=== PATIENT | female | born 1960 | race Caucasian/White ===

== ENCOUNTER 2020-09-13 07:16 | Emergency (ER) | payer BC ==
--- OUTSIDE RECORDS SUMMARY | 2020-09-13 07:19 | XMS REPORT | Continuity of Care Document ---
:1960 Author Organization [facility] t Address [address] [place] [address] Care Team Providers Name Role Phone Asked, No Pcp Primary Care Physician Unavailable Payers Payer Name Policy Type Policy Number Effective Date Expiration Date S ource Problems Condition Condition Condition Status Onset Resolution Last Treating Co mments Source Name Details Category Date Date Treatment Clinician Date History of History of Disease Active 2016-08 [facility] [place] colon colon 08-31 [facility] cancer cancer 00:00: st 00 Internal Internal Disease Active 2015-08 [place] on hemorrhoid hemorrhoid 09-26 [facility] s without s without 00:00: st complicati complicati 00 on on Constipati Constipati Disease Active 2015-08 [place] on on 09-26 [facility] 00:00: st 00 Allergies, Adverse Reactions, Alerts Allergy Allergy Status Severity Reaction(s) Onset Inactive Treating Comm ents Source Name Type Date Date Clinician No Known DA Active U 2019-08 [facility] Allergie 09-01 [place] [facility] 00:[facility]: [facility] No Known DA Active U [facility] Allergie 05-17 [facility] 00:00: [place] [id number] [facility] Family History Family Member Diagnosis Comments Start Date Stop Date Source Natural father Hypertension [place] [facility] Natural mother Arthritis [facility] Natural mother Stroke [facility] Other Cancer [place] [facility] Social History Social Habit Start Date Stop Date Quantity Comments Source Sex Assigned At [place] [facility] Alcohol intake 2018-07-06 2018-07-06 Current drinker [place] [facility] 00:00:00 00:00:00 of alcohol (finding) Smoking Status Start Date Stop Date Source Never smoker [place] [facility] Medications Ordered Filled Start Stop Current Ordering Indication Dosage Frequency Signature Comments Components Source Medication Medication Date Date Medication? Clinician (SIG) Name Name sodium,pota 2019-0 Yes Please [place] ssium,mag -02 take as [facility] sulfates 00:00: directed st (SUPREP 00 by BOWEL PREP physician. KIT) 17.5-3.13-1 .6 gram recon soln Procedures This patient has no known procedures. Plan of Care Planned Activity Planned Date Details Comments Source Future Scheduled 2021-09-05 COLONOSCOPY SCREENING [facility] Test 00:00:00 [code = COLONOSCOPY SCREENING] Future Scheduled 2020-03-30 INFLUENZA VACCINE [place] [facility] 00:00:00 [code = INFLUENZA VACCINE] Future Scheduled 2009 BREAST CANCER [facility] thodist Test 00:00:00 SCREENING [code = BREAST CANCER SCREENING] Future Scheduled 2009 SHINGLES VACCINES [place] [facility] Test 00:00:00 (#1) [code = SHINGLES VACCINES (#1)] Future Scheduled 1980 Screening for [facility] Test 00:00:00 malignant neoplasm of cervix (procedure) [code = [id number]] Future Scheduled 1975 COVID-19 VACCINE (1 [place] [facility] Test 00:00:00 of 2) [code = COVID-19 VACCINE (1 of 2)] Results Test Description Test Time Test Comments Results Result Comments Source Novel Coronavirus 2018 Inhouse 2020-06-28 18:08:00 Test Item Value Reference Range Interpretation Comme nts Novel Coronavirus 2018 Not Detected Not Detected Testi ng was performed using the Inhouse (test code = Aptima SARS-CoV-2 assay.This COVNONPUI) nucleic acid am plification test was developed a nd itsperformance characteristics determined by [facility]. Nucleic acid amplification t ests include PCRand TMA. Thi s test has not been FDA cleare d or approved.This test has been a uthorized by FDA under an Emerge ncy UseAuthorizatio n (EUA). This test is only authori zed forthe duration of shekhar e the declaration that circumstan cesexist justifying the authorization of the emergency u se ofin vitro diagnostic test s for detection of SARS-CoV-2 viru sand/or diagnosis of COVID-19 inf ection under zvmvdyr108(b)(1 ) of the Act, 21 U.S.C. 360bbb-3 (b) (1), unless theauthorizatio n is terminated or revoked sooner. When diagnostic testing is nega tive, the possibility of afalse negative result should b e considered in the contextof a patient's recent exposures and t he presence ofclinical sign s and symptoms consistent with COVID-19. Anindividual wi thout symptoms of COVID-19 and wh o is notshedding SARS-CoV-2 viru s would expect to have a negative (not detected) result in this assay.Performed At: [facility] [address] [id number] Bruno Alonso MD Ph:[phone] Novel Coronavirus 2018 [id number] 10:11:00 Test Item Value Reference Range Interpretation Comments Novel Coronavirus Not Detected Not Detected Testing wa s performed 2019 Inhouse (test using the Aptima code = COVNONPUI) SARS-CoV-2 assay.This nucleic acid amplification t est was developed and itsperformance characteristics determined by [facility]. Nucleic acid amplification t ests include PCRand TMA. This test has not be en FDA cleared or appr parrish.This test has been a uthorized by FDA under an Emergency UseAuthorizatio n (EUA). This test is on ly authorized fort he duration of shekhar e the declaration paz t circumstancesex ist justifying the authorization o f the emergency use o fin vitro diagnostic test s for detection of SA RS-CoV-2 virusand/or ashlyn gnosis of COVID-19 infect ion under (b)(1 ) of the Act, 21 U.S.C. 360bbb-3(b) (1) , unless theauthorizatio n is terminated or r evoked sooner.When ashlyn gnostic testing is nega tive, the possibility of afalse negative result should be considered i n the contextof a pat ient's recent exposure s and the presence ofclin ical signs and sympt oms consistent with COVID-19. Anind ividual without symptom s of COVID-19 and wh o is notshedding REMY S-CoV-2 virus would exp ect to have a negative (not detected) resul t in this assay.Performed At: [facility] [address] [id number] che Alonso MD Ph:[phone]
--- OUTSIDE RECORDS SUMMARY | 2020-09-13 07:19 | XMS REPORT | Clinical Summary ---
:1960 Author Organization [facility] Address [address] [place] [id number] Care Team Providers Name Role Phone Asked, Pcp Primary Care Provider Unavailable Allergies No Known Active Allergies Medications Medication Sig Dispensed Refills Start Date End Date Status sodium,potassium,mag Please take as 354 mL 0 08/31/2018 Active sulfates (SUPREP directed by BOWEL PREP KIT) physician. 17.5-3.13-1.6 gram recon soln Active Problems Problem Noted Date History of colon cancer 07/01/2017 Internal hemorrhoids without complication 07/27/2016 Constipation 07/27/2016 Surgical History Surgery Date Site/Laterality Comments COLONOSCOPY Family History Medical History Relation Name Comments Hypertension Father Arthritis Mother Stroke Mother Cancer Other grandmother Relation Name Status Comments Father Mother Other Social History Tobacco Use Types Packs/Day Years Used Date Never Smoker Alcohol Use Drinks/Week oz/Week Comments Yes 2 Standard drinks or equivalent 2.0 Sex Assigned at Date Recorded Not on file Last Filed Vital Signs Not on file Plan of Treatment Health Maintenance Due Date Last Done Comments COVID-19 VACCINE (1 of 2) 1975 CERVICAL CANCER SCREENING 1980 BREAST CANCER SCREENING 2009 SHINGLES VACCINES (#1) 2009 INFLUENZA VACCINE 03/30/2020 COLONOSCOPY SCREENING 09/05/2021 09/05/2018, 04/20/2016 Results Not on fileafter 09/13/2019 Advance Directives For more information, please contact: [phone] Type Date Recorded Patient Print Production Coordinator Explanati on Advance Directives, Living Will and Medical Power of Intelligence Agent
--- NOTE | 2020-09-13 07:53 | ER ---
Nurse's Notes [facility] Name: Ewa Richardson Age: 60 yrs Sex: Female : 1960 Arrival Date: 09/13/2020 Time: 07:17 Bed 8 Private MD: Diagnosis: COVID Exposure Presentation: 09/13 07:28 Chief complaint: Sinus congestion x 2 days. Exposed to COVID + pt last weekend. hb Coronavirus screen: Client presents with at least one sign or symptom that may indicate coronavirus-19. Standard/surgical mask placed on the client. Provider contacted for isolation considerations. Ebola Screen: No symptoms or risks identified at this time. Initial Sepsis Screen: Does the patient meet any 2 criteria? No. Patient's initial sepsis screen is negative. Does the patient have a suspected source of infection? No. Patient's initial sepsis screen is negative. Risk Assessment: Do you want to hurt yourself or someone else? Patient reports no desire to harm self or others. Onset of symptoms was September 11, 2020. 07:28 Method Of Arrival: Ambulatory 07:28 Acuity: MARZENA 4 hb Historical: - Allergies: 07:30 No Known Allergies; hb - Immunization history:: Adult Immunizations up to date. - Social history:: Smoking status: Patient denies any tobacco usage or history of. Screenin:40 Abuse screen: Denies threats or abuse. Nutritional screening: No deficits noted. aa5 Tuberculosis screening: No symptoms or risk factors identified. Fall Risk None identified. Assessment: 07:40 General: Appears comfortable, Behavior is calm, cooperative. Pain: Denies pain. Neuro: aa5 Level of Consciousness is awake, alert, obeys commands, Oriented to person, place, time, situation. Cardiovascular: Patient's skin is warm and dry. Respiratory: Airway is patent Respiratory effort is even, unlabored, Respiratory pattern is regular, symmetrical. GI: No signs and/or symptoms were reported involving the gastrointestinal system. : No signs and/or symptoms were reported regarding the genitourinary system. EENT: Reports nasal congestion. Derm: Skin is pink, warm \T\ dry. Musculoskeletal: Range of motion: intact in all extremities. Vital Signs: 07:28 BP 134 / 93; Pulse 84; Resp 16; Temp 98.2; Pulse Ox 100% on R/A; Pain 0/10; hb ED Course: 07:17 Patient arrived in ED. ag3 07:29 Triage completed. hb 07:30 Arm band placed on. hb 07:34 Finn Gross MD is Attending Physician. kdr 07:35 Julia Oh, RN is Primary Nurse. aa5 07:40 Patient has correct armband on for positive identification. Bed in low position. aa5 07:42 COVID swab sent to lab. Flu and/or RSV swab sent to lab. aa5 07:52 No provider procedures requiring assistance completed. Patient did not have IV access aa5 during this emergency room visit. Administered Medications: No medications were administered Outcome: 07:52 Discharge ordered by . kdr 07:52 Discharged to home ambulatory. aa5 07:52 Condition: stable 07:52 Discharge instructions given to patient, Instructed on discharge instructions, follow up and referral plans. Demonstrated understanding of instructions, follow-up care. 07:53 Patient left the ED. aa5 Signatures: Finn Gross MD MD [facility] Julia Oh, RN RN [facility] Carmelina Albright, KARL RN Erin Forrester 3
--- NOTE | 2020-09-13 07:53 | EDPHYS ---
Physician Documentation [facility] Name: Ewa Richardson Age: 60 yrs Sex: Female : 1960 Arrival Date: 09/13/2020 Time: 07:17 Bed 8 Private MD: ED Physician Finn Gross HPI: 09/13 07:45 This 60 yrs old Female presents to ER via Ambulatory with complaints of kdr Cough, Congestion. 07:45 The patinet was here for COVID swab after exposure earlier last week. She has minimal kdr symptoms . Historical: - Allergies: 07:30 No Known Allergies; hb - Immunization history:: Adult Immunizations up to date. - Social history:: Smoking status: Patient denies any tobacco usage or history of. ROS: 07:45 Constitutional: Negative for fever, chills, and weight loss. kdr Exam: 07:45 Constitutional: No exam performed this will be a non-bill for [facility] kdr Vital Signs: 07:28 BP 134 / 93; Pulse 84; Resp 16; Temp 98.2; Pulse Ox 100% on R/A; Pain 0/10; hb MDM: 07:52 Patient medically screened. kdr 07:53 Data reviewed: vital signs, nurses notes, lab test result(s). Counseling: I had a kdr detailed discussion with the patient and/or guardian regarding: the historical points, exam findings, and any diagnostic results supporting the discharge/admit diagnosis, lab results, the need for outpatient follow up. Administered Medications: No medications were administered Disposition: 09/13/20 07:52 Discharged to Home. Impression: COVID Exposure. - Condition is Stable. - Discharge Instructions: COVID-19. - Medication Reconciliation Form, Thank You Letter form. - Follow up: Private Physician; When: 2 - 3 days; Reason: If symptoms return, Further diagnostic work-up, Recheck today's complaints, Continuance of care, Re-evaluation by your physician. - Problem is new. - Symptoms are unchanged. Signatures: Dispatcher [employer] EDMS Finn Gross MD MD kdr Calderon, Audri, RN RN aa5 Carmelina Albright RN RN hb Corrections: (The following items were deleted from the chart) 07:53 07:52 09/13/2020 07:52 Discharged to Home. Impression: COVID Exposure. Condition is aa5 Stable. Forms are Medication Reconciliation Form, Thank You Letter, Antibiotic Education, Prescription Opioid Use. Follow up: Private Physician; When: 2 - 3 days; Reason: If symptoms return, Further diagnostic work-up, Recheck today's complaints, Continuance of care, Re-evaluation by your physician. Problem is new. Symptoms are unchanged. kdr
[2020-09-13 07:58] VITALS: BP 134/93; TEMP 98.2; O2SAT 100
[2020-09-13 08:49] LABS: SARS-COV-2 RT PCR NEGATIVE (NEGATIVE)
== END 2020-09-13 07:53 | disposition home or self-care (01) ==
LOC: ER 07:16
DX: R09.81 Nasal congestion (principal); Z20.822 Contact with and (suspected) exposure to COVID-19
CPT/HCPCS: 0240U; 99283